=== PATIENT | female | born 1950 | race Caucasian/White ===

== ENCOUNTER 2020-06-17 15:31 | Outpatient (REF) | payer MEDICARE, SELFPAY ==
--- NOTE | ~2020-06-17 | XR_ITS ---
EXAMINATION: XR CERVICAL SPINE CLINICAL INFORMATION: Cervical spondylosis COMPARISON: None TECHNIQUE: 6 views of the cervical spine were obtained. FINDINGS: There is maintained cervical lordosis. The vertebral heights, alignment are normal. There is loss of C4-C5, C5-C6 and C6-C7 disc heights with moderate ventral spondylosis. Rest the disc is normal. No visible acute fracture, dislocation or subluxation seen. On oblique views there is bilateral C4-C5 and C5-C6 neural foraminal narrowing from uncovertebral hypertrophic changes. No visible acute fracture, dislocation or lytic process seen. The prevertebral soft tissues are normal. XR/XR cervical spine 4V IMPRESSION: Degenerative disc changes C4-C5 through C6-C7 disc levels with ventral and posterior spondylosis. No visible acute fracture or dislocation seen.
== END 2020-06-17 15:32 | disposition home or self-care (01) ==
LOC: HO.XRAY 15:31
PROVIDERS: PCP Internal Medicine; Visit Provider Psychiatry & Neurology Neurology
DX: M47.812 Spondylosis without myelopathy or radiculopathy, cervical region (principal)
CPT/HCPCS: 72050

== ENCOUNTER 2020-07-02 10:50 | Outpatient (REF) | payer MEDICARE, SELFPAY ==
--- NOTE | ~2020-07-02 | CT_ITS ---
EXAMINATION: CT HEAD WITHOUT CONTRAST CLINICAL INFORMATION: Concussion. COMPARISON: None. TECHNIQUE: Contiguous axial imaging was performed from the skull base to vertex without intravenous administration of contrast. This CT examination was performed using dose optimization techniques as appropriate, variously including the following: *Automated exposure control *Adjustment of mA and/or kV according to patient size (this includes techniques or standardized protocols for targeted exams where dose is matched to indication/reason for exam; i.e. extremities or head) *Use of iterative reconstruction technique DLP: 641 mGy-cm. FINDINGS: There is no evidence of acute intracranial hemorrhage or territorial infarction. No abnormal mass effect or midline shift is seen. Beach to white matter differentiation is well preserved. No extra-axial fluid collections are identified. The ventricles are normal in size. There is no abnormal attenuation within the brain parenchyma. The osseous structures and soft tissues are normal. The mastoid sinuses and the paranasal sinuses are well aerated. CT/CT head/brain wo con IMPRESSION: No acute intracranial process seen.
== END 2020-07-02 10:51 | disposition home or self-care (01) ==
LOC: HO.CT 10:50
PROVIDERS: PCP Internal Medicine; Visit Provider Psychiatry & Neurology Neurology
DX: S06.0X9A Concussion with loss of consciousness of unspecified duration, initial encounter (principal)
CPT/HCPCS: 70450

== ENCOUNTER 2021-02-04 09:52 | Outpatient (REF) | payer MEDICARE, SELFPAY ==
[2021-02-04 10:08] LABS: MANUAL DIFF FLAG NO
[2021-02-04 10:45] LABS: Basophils Percent Auto 0.4 % (0-2); Eosinophils Absolute Auto 0.1 X10*3/uL (0.0-0.4); Eosinophils Percent Auto 1.1 % (0-4); Hematocrit 41.2 % (37-47); Hemoglobin 13.6 g/dl (12.0-16.0); Imm Gran Abs Auto 0.03 X10*3/uL (0.00-0.03); Imm Gran Pct Auto 0.3 % (0.0-0.4); Lymphocytes Absolute Auto 1.8 X10*3/uL (1.2-4.9); Lymphocytes Percent Auto 17.4 % (20-40); Mean Corpuscular Hemoglobin 30.4 pg (27.0-33.0); Mean Platelet Volume 10.8 fL (9.4-12.3); Monocytes Absolute Auto 0.8 X10*3/uL (0.1-1.2); Monocytes Percent Auto 7.7 % (2-11); Neutrophils Absolute Auto 7.5 X10*3/uL (2.0-8.3); Neutrophils Percent Auto 73.1 % (45-73); Platelet Count 256 X10*3/uL (160-400); Red Blood Count 4.48 X10*6/uL (4.20-5.50); Red Cell Distribution Width 12.9 % (11.0-16.0); White Blood Count 10.3 X10*3/uL (4.8-10.8)
[2021-02-04 11:06] LABS: C Reactive Protein 0.46 mg/dL (< or = 0.50)
[2021-02-04 11:57] LABS: Erythrocyte Sedimentation Rate 7 MM/HR (0-20)
== END 2021-02-04 09:53 | disposition home or self-care (01) ==
LOC: HO.LAB 09:52
PROVIDERS: PCP Internal Medicine; Visit Provider Psychiatry & Neurology Neurology
DX: R51.9 Headache, unspecified (principal)
CPT/HCPCS: 36415; 85025; 85652; 86140

== ENCOUNTER 2021-03-24 08:40 | Outpatient (REF) | payer MEDICARE, SELFPAY ==
--- NOTE | ~2021-03-24 | MR_ITS ---
EXAMINATION: MR LUMBAR SPINE WITHOUT CONTRAST CLINICAL INFORMATION: 70-year-old with left L5 radiculopathy and low back pain. Evaluate for herniation or spinal stenosis. COMPARISON: None FINDINGS: Coronal Alignment: Slight S-shaped lumbar scoliotic curvature noted, slightly convex to the left at L4-L5 and to the right at L2-L3. Sagittal Alignment: Slight retrolisthesis at L2-L3 noted. Otherwise normal spinal alignment in the sagittal plane. Lumbosacral Junction: Normal. Vertebral Bodies: Normal height. Disc Spaces and Endplates: Gmomzfeu-pa-oolnrz disc space height loss at L2-L3 and L4-L5 with disc desiccation and multiple Schmorl's nodes, with the moderate spondylosis at these levels. Kxez-dh-whpnmxaf disc space height loss, disc desiccation, Schmorl's nodes and oudn-zn-ztpvljkx spondylosis at L3-L4. Mild disc space height loss and disc desiccation at L1-L2 and L5-S1 with mild spondylosis at these levels. Spinal Canal: No abnormal developmental findings. Bone Marrow: There is type I degenerative marrow signal change seen along the endplates at L3-L4 and L2-L3. Slightly heterogeneous bone marrow signal intensity seen throughout the osseous structures is nonspecific. Conus Medullaris: Terminates at L1. Morphology and signal is normal. Intradural Nerve Roots: Within normal limits. L5-S1: Mild diffuse disc bulging is noted asymmetric to the left with ligamentum flavum thickening and moderate bilateral facet arthropathy, with mild right-sided and elvy-be-pwiddbpy left-sided subarticular recess stenosis without significant central canal stenosis. There is severe bilateral neural foraminal stenosis, with bilateral L5 nerve root impingement. L4-L5: There is concentric disc bulge with right posterolateral disc osteophyte complex, with mild bilateral facet arthropathy. There is mild subarticular recess stenosis bilaterally without significant central spinal canal stenosis. There is moderate right-sided neural foraminal stenosis without neural impingement. L3-L4: There is moderate diffuse disc bulging, with flattening of the dural sac with ligamentum flavum thickening and interspinous ligament degeneration, with mild facet arthropathy bilaterally. Left lateral foraminal/extraforaminal disc herniation noted. There is dhfu-ia-xtwxsvjz bilateral subarticular recess stenosis and mild central spinal canal stenosis. Mild right-sided and moderate left-sided neural foraminal stenosis is noted with disc herniation impinging on the exiting left L3 nerve root. L2-L3: Disc bulging is noted with a superimposed left paramedian to lateral foraminal/extraforaminal disc osteophyte complex, with flattening of the dural sac asymmetric to the left and mild bilateral facet arthrosis. There is moderate left and mild right subarticular recess stenosis without significant central spinal canal stenosis. There is mild left-sided neural foraminal stenosis without neural impingement. L1-L2: Minimal posterolateral disc osteophyte complex on the left and a mild right foraminal/extraforaminal disc protrusion with minor facet arthropathy without significant spinal canal stenosis. Mild neural foraminal narrowing noted on the right without neural impingement. Paraspinal/Retroperitoneal: Moderate generalized diffuse posterior paraspinal muscle volume loss. Small simple-appearing cortical cyst upper pole right kidney noted. Limited assessment. No follow up recommended based on current ACR best practice guidelines. MR/MR lumbar spine wo con IMPRESSION: 1. Slight retrolisthesis at L2-L3 with mild S-shaped lumbar scoliotic curvature. 2. Multilevel DDD and spondylosis as described above, with multilevel disc bulging, disc osteophyte complexes and predominantly iaqg-vm-dowcziym degrees of facet arthropathy most apparent at L5-S1 bilaterally. 3. Severe bilateral neural foraminal stenosis at L5-S1 with bilateral L5 nerve root impingement. Left lateral disc herniation at L3-L4 impinging on the exiting left L3 nerve root. 4. Mild spinal canal stenosis at L3-L4. Multilevel mild subarticular recess stenosis as described above. 5. Other levels of the jyil-ts-tzvfjnli degrees of neural foraminal stenosis as described above.
== END 2021-03-24 08:41 | disposition home or self-care (01) ==
LOC: HO.MRI 08:40
PROVIDERS: PCP Internal Medicine; Visit Provider Psychiatry & Neurology Neurology
DX: M54.16 Radiculopathy, lumbar region (principal)
CPT/HCPCS: 72148

== ENCOUNTER 2021-05-12 12:31 | Outpatient (REF) | payer MEDICARE, SELFPAY ==
[2021-05-12 13:06] LABS: MANUAL DIFF FLAG NO
[2021-05-12 13:25] LABS: Basophils Absolute Auto 0.1 X10*3/uL (0.0-0.2); Basophils Percent Auto 0.7 % (0-2); Eosinophils Absolute Auto 0.1 X10*3/uL (0.0-0.4); Eosinophils Percent Auto 1.9 % (0-4); Hematocrit 42.8 % (37.0-47.0); Hemoglobin 13.6 g/dl (12.0-16.0); Lymphocytes Absolute Auto 1.9 X10*3/uL (1.2-4.9); Lymphocytes Percent Auto 27.6 % (20-40); Mean Corpuscular HGB Conc 31.8 g/dl (31.0-35.0); Mean Corpuscular Hemoglobin 29.2 pg (27.0-33.0); Mean Platelet Volume 10.7 fL (9.4-12.3); Monocytes Absolute Auto 0.6 X10*3/uL (0.1-1.2); Neutrophils Absolute Auto 4.3 x10*3/uL (2.0-8.3); Neutrophils Percent Auto 61.8 % (45-73); Platelet Count 234 X10*3/uL (160-400); Red Blood Count 4.65 X10*6/uL (4.20-5.50); Red Cell Distribution Width 13.1 % (11.0-16.0); White Blood Count 6.9 X10*3/uL (4.8-10.8)
[2021-05-12 13:55] LABS: Blood Urea Nitrogen 17 mg/dL (9-16); Estimated Glomerular Filt Rate 58
[2021-05-12 14:08] LABS: Erythrocyte Sedimentation Rate 7 MM/HR (0-20)
== END 2021-05-12 12:32 | disposition home or self-care (01) ==
LOC: HO.LAB 12:31
PROVIDERS: PCP Nurse Practitioner Gerontology; Visit Provider Psychiatry & Neurology Neurology
DX: R51.9 Headache, unspecified (principal)
CPT/HCPCS: 36415; 82565; 84520; 85025; 85652

== ENCOUNTER 2021-05-16 07:51 | Outpatient (REF) | payer MEDICARE, SELFPAY ==
--- NOTE | ~2021-05-16 | MR_ITS ---
EXAMINATION: MR BRAIN WITHOUT AND WITH CONTRAST CLINICAL INFORMATION: 71-year-old with right-sided facial/tooth pain. Evaluate for root compression. COMPARISON: None TECHNIQUE: Multiplanar, multisequence MRI of the brain/extracranial head and neck structures was obtained before and after the intravenous administration of 6 mL Gadavist. Technical Note: There is some image degradation related to metallic hardware artifact from the oral cavity. FINDINGS: The brain is normal in morphology. Scattered punctate and faint patchy zones of FLAIR signal hyperintensity are seen in the white matter of both cerebral hemispheres without abnormal enhancement likely reflecting minimal chronic ischemic microangiopathy. Metallic hardware artifact partially obscures the right mesial temporal lobe and right inferior basal ganglia on the FLAIR images. No intracranial mass lesion, abnormal enhancement, space-occupying process or mass effect is identified. The cisternal and cavernous portions of the trigeminal nerves are visualized bilaterally on the fluid-sensitive thin section images. There is no mass lesion or abnormal enhancement in these regions. There is a normal appearance to the trigeminal fat pads bilaterally. The foramen ovale appear within normal limits bilaterally. The cavernous sinuses are symmetric and enhance normally with a normal appearance to the pterygopalatine fossa and foramina rotunda. The pterygomaxillary fissures and retromaxillary fat pads appear normal. Note is made of a defect along the right orbital floor which has the appearance of a bomb bay door defect, suggesting a previous blowout fracture of the right orbital floor. This appears to involve the region of the infraorbital groove. Unfortunately due to metallic hardware artifact, abnormal enhancement within this groove corresponding to the V2 segment of the trigeminal nerve cannot be excluded. However, no obvious mass lesion is seen. Note is made of a 1.0 cm cystic lesion in the right parotid gland in the region of the deep lobe, which appears to display a small blood fluid level within it and is nonspecific. The visualized mandible appears grossly intact within the limitations of the exam. No focal reduced diffusion is seen to suggest acute or subacute cerebral ischemia. The ventricular system and subarachnoid spaces appear within normal limits without hydrocephalus. Normal signal voids are seen in the visualized major intracranial vessels. Osseous marrow signal intensity appears within normal limits. Focal mucosal thickening or retention cyst along the floor of the right maxillary sinus which appears distorted related to metallic artifact. MR/MR head/brain wo/w con IMPRESSION: 1. Findings are consistent with a blowout fracture deformity of the right orbital floor which appears to correspond to the location of the infra-orbital groove. Relationship to symptoms is uncertain. Correlate with chronicity of previous trauma. 2. Nonspecific cystic lesion with a fluid level in the right parotid gland deep lobe. Etiology uncertain. Consider follow-up MRI of the soft tissue neck in 6 months to reassess and/or ENT consult. 3. Scattered FLAIR signal hyperintensities in the white matter of both cerebral hemispheres without abnormal enhancement which are nonspecific findings but likely reflect tiny zones of chronic ischemic microangiopathy. 4. Some limitations related to metallic hardware artifact as discussed above.
== END 2021-05-16 07:52 | disposition home or self-care (01) ==
LOC: HO.MRI 07:51
PROVIDERS: Visit Provider Psychiatry & Neurology Neurology
DX: R51.9 Headache, unspecified (principal)
CPT/HCPCS: 70553; A9585

== ENCOUNTER → 2021-05-30 09:23 | Outpatient (BNVA) | payer MEDICARE, SELFPAY | PROVIDERS: PCP Nurse Practitioner Gerontology; Visit Provider Internal Medicine | DX: M54.16 Radiculopathy, lumbar region (principal); M48.07 Spinal stenosis, lumbosacral region | CPT/HCPCS: 99202 ==

== ENCOUNTER 2021-09-17 07:21 | Outpatient (REF) | payer MEDICARE, SELFPAY ==
--- NOTE | ~2021-09-17 | FL_ITS ---
EXAMINATION: XR FLUOROSCOPY WITH IMAGES CLINICAL INFORMATION: Radiculopathy lumbar region COMPARISON: None. TECHNIQUE: Fluoroscopy performed by Dr. Dariel Barnard. Fluoroscopy time: 0.6 minutes DAP: 0.976 Gycm2 Images: 4 FINDINGS: Measures appear to demonstrate epidural injection with contrast. FL/FL guidance in treatment room IMPRESSION: Intraoperative fluoroscopy for pain management procedure.
== END 2021-09-17 07:22 | disposition home or self-care (01) ==
LOC: HO.RADIR 07:21
PROVIDERS: Visit Provider Internal Medicine
DX: M54.16 Radiculopathy, lumbar region (principal)
CPT/HCPCS: 64483; J1040; J1100

== ENCOUNTER → 2021-10-17 09:06 | Outpatient (BNVA) | payer MEDICARE, SELFPAY | PROVIDERS: PCP Nurse Practitioner Gerontology; Visit Provider Nurse Practitioner Family | DX: M51.36 Other intervertebral disc degeneration, lumbar region (principal); M54.16 Radiculopathy, lumbar region | CPT/HCPCS: Q3014 ==

== ENCOUNTER 2024-03-08 11:12 | Outpatient (REF) | payer MEDICARE, SELFPAY ==
[2024-03-08 11:33] LABS: MANUAL DIFF FLAG NO
[2024-03-08 11:44] LABS: Basophils Percent Auto 0.6 % (0-2); Eosinophils Absolute Auto 0.1 X10*3/uL (0.0-0.4); Eosinophils Percent Auto 1.6 % (0-4); Hematocrit 40.3 % (37.0-47.0); Hemoglobin 13.4 g/dl (12.0-16.0); Imm Gran Abs Auto 0.03 X10*3/uL (0.00-0.03); Imm Gran Pct Auto 0.4 % (0.0-0.4); Lymphocytes Absolute Auto 2.2 X10*3/uL (1.2-4.9); Lymphocytes Percent Auto 31.2 % (20-40); Mean Corpuscular HGB Conc 33.3 g/dl (31.0-35.0); Mean Corpuscular Hemoglobin 30.2 pg (27.0-33.0); Mean Corpuscular Volume 90.8 fL (80.0-98.0); Mean Platelet Volume 9.9 fL (9.4-12.3); Monocytes Absolute Auto 0.7 X10*3/uL (0.1-1.2); Monocytes Percent Auto 9.5 % (2-11); Neutrophils Absolute Auto 3.9 x10*3/uL (2.0-8.3); Neutrophils Percent Auto 56.7 % (45-73); Platelet Count 277 X10*3/uL (160-400); Red Blood Count 4.44 X10*6/uL (4.20-5.50); Red Cell Distribution Width 12.9 % (11.0-16.0)
[2024-03-08 12:25] LABS: Erythrocyte Sedimentation Rate 8 MM/HR (0-20)
[2024-03-08 12:32] LABS: TSH reflex Free T4 0.36 uIU/mL (0.32-4.0)
[2024-03-10 18:43] LABS: Lyme Blot 1.64 index
[2024-03-13 10:16] LABS: Lyme Abs Screen POSITIVE
[2024-03-14 13:18] LABS: 18 KD (IgG) Band NON-REACTIVE; 23 KD (IgG) Band REACTIVE; 23 KD (IgM) Band NON-REACTIVE; 28 KD (IgG) Band NON-REACTIVE; 30 KD (IgG) Band NON-REACTIVE; 39 KD (IgM) Band NON-REACTIVE; 39KD (IgG) Band REACTIVE; 41 KD (IgM) Band NON-REACTIVE; 41KD (IgG) Band REACTIVE; 45 KD (IgG) Band NON-REACTIVE; 58 KD (IgG) Band REACTIVE; 66 KD (IgG) Band NON-REACTIVE; 93 KD (IgG) Band REACTIVE; Lyme IgG Blot Interp POSITIVE (NEGATIVE); Lyme IgM Blot Interp NEGATIVE (NEGATIVE)
== END 2024-03-08 11:13 | disposition home or self-care (01) ==
LOC: HO.LAB 11:12
PROVIDERS: PCP Nurse Practitioner Gerontology; Visit Provider Psychiatry & Neurology Neurology
DX: R51.9 Headache, unspecified (principal)
CPT/HCPCS: 36415; 84443; 85025; 85652; 86617; 86618

== ENCOUNTER 2024-05-24 09:07 | Day surgery (SDC) | payer MEDICARE, SELFPAY ==
--- NOTE | ~2024-05-24 | FL_ITS ---
FLUOROSCOPIC LUMBAR PUNCTURE INDICATION: Concern for REHABILITATION PHYSICIAN Lyme disease TECHNIQUE: Risks and benefits and possible complications were discussed with the patient and the consent form was signed. Patient was placed prone on the fluoroscopy table. The back was prepped and draped in routine sterile fashion. Betadine was used as a skin antiseptic. Utilizing fluoroscopic guidance, the L4-5 interlaminar space was accessed with a 22 gague Basilio spinal needle and clear CSF fluid was obtained. Opening pressure was 8 cm H2O. 8 cc of fluid was sent for analysis. The needle was removed without immediate complications. Total fluoroscopy time: 0.9 min FL/FL guided lumbar puncture LP IMPRESSION: Successful fluoroscopic guided lumbar puncture at L4-L5. This procedure was performed by Erwin Herrera PA-C and supervised by Dr. Nelson. Electronically signed by: Taurus Nelson MD 05/25/2024 08:36 AM [facility] [place]
--- OUTSIDE RECORDS SUMMARY | 2024-05-24 10:05 | XMS_ITS | Continuity of Care Document ---
Author Organization [facility] Infectious Disease Address [address] [place] [id number]- Care Team Providers Care Fbi Field Agent Name Role Phone Chano DOHERTY, Josseline Stein Primary Care Physician [place] [facility] [place]): [place]/17/24 [facility] Infectious Disease [address] [place] [id number] Attending Physician: Admtr, [id number] Admitting Physician: Admtr, Martínez Referring Physician: Admtr, [id number] Encounter Type: Triage Allergies, Adverse Reactions, Alerts Substance Criticality Severity Reaction Reaction Severity Status amoxicillin colitis Active Flagyl colitis Active metroNIDAZOLE Active Immunizations Given and Recorded Vaccine Date Status Refusal Reason influenza virus vaccine, inactivated 1 03/02/24 Gi leena influenza virus vaccine, inactivated 01/04/23 Romel rded influenza virus vaccine, inactivated 01/30/22 Romel rded influenza virus vaccine, inactivated 02/16/21 Romel rded influenza virus vaccine, inactivated 03/27/16 Romel rded influenza virus vaccine, inactivated 01/12/12 Romel rded influenza virus vaccine, inactivated 03/03/11 Romel rded influenza virus vaccine, inactivated 01/27/10 Romel rded tetanus/diphtheria/pertussis, acel(Tdap) 2 09/21/22 Given SARS-CoV-2 (COVID-19) mRNA BNT-162b2 vac 02/22/21 Recorded SARS-CoV-2 (COVID-19) mRNA BNT-162b2 vac 08/07/20 Recorded SARS-CoV-2 (COVID-19) mRNA BNT-162b2 vac 3 07/15/20 Recorded pneumococcal 13-valent vaccine 4 10/30/19 Recorded 1Result Comment: [id number] 2Result Comment: [facility] [id number] 3Result Comment: [facility] 4Result Comment: [facility] Problem List Condition Confirmation Course Effective Dates Status Health Status Informant Abdominal bloating Confirmed Active Atypical facial pain Confirmed Active Biliary dyskinesia Confirmed Active Diarrhea Confirmed Active Gastroesophageal reflux disease Confirmed Active Hypercholesterolemia Confirmed Active HTN (hypertension) Confirmed Active Arthralgia Confirmed Active Lower back pain Confirmed Active Nicotine dependence Confirmed Active Osteoporosis Confirmed Active Social History Social History Type Response Smoking Status Former smoker, quit more than 30 days ago entered on: 04/17/24 Sex Sex Representation Female (finding) Patient Care team information Care Team Personnel Name: Chano DOHERTY, Josseline Stein Position: [facility] PCO Associate Professional Member Role: PCP Address: [address] [place] [address] [place] [address]- Telecom: Name: Christian Branch MD Position: [facility] JEWEL BEARING FACER MD Member Role: Lifetime Consulting Physician Address: [address] [place] [phone]- Telecom: Name: Lata Morris RN Position: [facility] AMB Nurse Member Role: Primary Care Nurse Care Team Related Persons Name: GOLD TRUONG Name: DEONDRE MARTINEZ Insurance Providers Guarantor name: VERA MARTINEZ Health Plan Information #: 1 Payer: MEDICARE PART B OUTPT Member Number: NA Policy Number: NA Group Number: NA Health Plan Information #: 2 Payer: MEDEX Member Number: NA Policy Number: NA Group Number: NA
--- OUTSIDE RECORDS SUMMARY | 2024-05-24 10:05 | XMS_ITS | Clinical Summary ---
Author Organization [facility] [place] [address] Care Team Providers Care Lens Grinder Name Role Phone Josseline Madden NP Primary Care Provider [phone] Social History Tobacco Use Types Packs/Day Years Used Date Smoking Tobacco: Never Assessed Comments Unknown Sex and Gender Information Value Date Recorded Sex Assigned at Not on file Legal Sex Female 7:26 AM EST Gender Identity Not on file Sexual Orientation Not on file Last Filed Vital Signs Vital Sign Reading Time Taken Comments Blood Pressure 110/78 06/30/2022 1:15 PM EDT Pulse 84 06/30/2022 1:15 PM EDT Temperature - - Respiratory Rate - - Oxygen Saturation - - Inhaled Oxygen Concentration - - Weight 57.6 kg (127 lb) 06/30/2022 1:15 PM EDT Height 158.8 cm (5' 2.5 ) 06/30/2022 1:15 PM EDT Body Mass Index 22.86 06/30/2022 1:15 PM EDT Plan of Treatment Health Maintenance Due Date Last Done Comments DTaP,Tdap,and Td Vaccines (1 - Tdap) 1968 Pneumococcal Vaccine: 50+ Ye ars (1 of 1 - PCV) 1999 Zoster Vaccines (1 of 2) 1999 Colorectal Cancer Screening: Colonoscopy 03/15/2022 Depression Screening 03/15/2022 Falls Risk Assessment 03/15/2022 Hepatitis C Screening 03/15/2022 Osteoporosis Screening (Bone Density Screening) 03/15/2022 Social Influencers of Health Screening 03/15/2022 COVID-19 Vaccine ( - 2023-2 5 season) 2023 Influenza Vaccine (#1) 2023 RSV Immunization Patients 60 + Years Old (1 - 1-dose 75+ series) 2024 HIB Vaccines Aged Out No longer eligi ble based on patient's age to complete this topic HPV Vaccines Aged Out No longer eligi ble based on patient's age to complete this topic Hepatitis A Vaccines Aged Out No long er eligible based on patient's age to complete this topic Hepatitis B Vaccines Aged Out No long er eligible based on patient's age to complete this topic IPV Vaccines Aged Out No longer eligi ble based on patient's age to complete this topic MMR Vaccines Aged Out No longer eligi ble based on patient's age to complete this topic Meningococcal ACWY Vaccine Aged Out N o longer eligible based on patient's age to complete this topic Meningococcal B Vacine Aged Out No lo nger eligible based on patient's age to complete this topic RSV Immunization Patients Un zhao 20 months Aged Out No longer eligible b ased on patient's age to complete this topic Varicella Vaccines Aged Out No longer eligible based on patient's age to complete this topic Care Teams Lens Grinder Relationship Specialty Start Date End Date Josseline Madden NP [address] [facility] [place] [address] PCP - General Internal Medicine 12/16/21
[2024-05-24 10:22] VITALS: BMI 25.2
[2024-05-24 10:25] VITALS: BP 126/56; PULSE 77; RESP 16; TEMP 36.4; O2SAT 99
[2024-05-24 12:00] VITALS: BP 132/61; PULSE 75; RESP 18; TEMP 36.9; O2SAT 99
[2024-05-24 12:15] VITALS: BP 115/58; PULSE 70; RESP 18; O2SAT 99
[2024-05-24 12:30] VITALS: BP 117/58; PULSE 71; RESP 18; O2SAT 99
[2024-05-24 12:32] LABS: CSF Appearance Clear, Colorless; CSF Tube # 1
[2024-05-24 12:42] LABS: Glucose CSF 51 mg/dL; Total Protein CSF 40.9 mg/dL (15-45)
[2024-05-24 12:45] VITALS: BP 120/59; PULSE 71; RESP 18; TEMP 36.8; O2SAT 99
[2024-05-24 14:07] LABS: Appearance CSF CLEAR; CSF Monos 5 %; CSF Other Cells % 5 %; CSF Tube # 4; Color CSF COLORLESS; Lymphocytes CSF 87 %; Neutrophils CSF 3 %; Red Blood Cell CSF 1 MM*3; White Blood Cell CSF 3 MM*3
== END 2024-05-24 13:03 | disposition home or self-care (01) ==
PROVIDERS: Physician Assistant Surgical; PCP Nurse Practitioner Gerontology; Visit Provider Psychiatry & Neurology Neurology
PROC: 009U3ZZ Drainage of Spinal Canal, Percutaneous Approach (ICD-10-PCS; CPT 62270; principal; 2024-05-24 12:00)
DX: A69.20 Lyme disease, unspecified (principal); R51.9 Headache, unspecified; M54.12 Radiculopathy, cervical region; I10 Essential (primary) hypertension; E78.5 Hyperlipidemia, unspecified; M81.0 Age-related osteoporosis without current pathological fracture; K21.9 Gastro-esophageal reflux disease without esophagitis; Z79.899 Other long term (current) drug therapy; Z88.1 Allergy status to other antibiotic agents; Z90.49 Acquired absence of other specified parts of digestive tract; F17.210 Nicotine dependence, cigarettes, uncomplicated
CPT/HCPCS: 62328; 82945; 84157; 87015; 87070; 87205; 89051; J2003

== ENCOUNTER → 2024-05-24 11:10 | Outpatient (BNV) | payer MEDICARE, SELFPAY | PROVIDERS: PCP Nurse Practitioner Gerontology; Visit Provider Physician Assistant Surgical | DX: A69.20 Lyme disease, unspecified (principal) | CPT/HCPCS: 62328 ==